=== PATIENT | female | born 1985 | race Caucasian/White ===

== ENCOUNTER → 2017-01-18 | Outpatient (REF) | payer OTHER ==
[2017-01-18 19:07] LABS: ALBUMIN 4.1 GM/DL (3.2-5.2); ALBUMIN/GLOBULIN RATIO 1.32 (1.00-1.93); ALKALINE PHOSPHATASE 60 U/L (45-117); ALT/SGPT 52 U/L (12-78); ANION GAP 7 MEQ/L (8-16); AST/SGOT 22 U/L (15-37); BILIRUBIN,TOTAL 1.1 MG/DL (0.2-1.0); BLOOD UREA NITROGEN 12 MG/DL (7-18); CALCIUM LEVEL 8.8 MG/DL (8.5-10.1); CARBON DIOXIDE LEVEL 30 MEQ/L (21-32); CHLORIDE LEVEL 104 MEQ/L (98-107); CREATININE FOR GFR 0.75 MG/DL (0.55-1.02); FREE T4 0.91 NG/DL (0.76-1.46); GLOMERULAR FILTRATION RATE > 60.0 (>60); GLUCOSE, FASTING 78 MG/DL (70-105); POTASSIUM SERUM 4.1 MEQ/L (3.5-5.1); SODIUM LEVEL 141 MEQ/L (136-145); TOTAL PROTEIN 7.2 GM/DL (6.4-8.2)
[2017-01-18 19:12] LABS: MEAN CORPUSCULAR HEMOGLOBIN 31.5 pg (27.0-33.0); MEAN CORPUSCULAR HGB CONC 33.7 g/dl (32.0-36.5); MEAN CORPUSCULAR VOLUME 93.6 fl (80.0-96.0); RED CELL DISTRIBUTION WIDTH 11.8 % (11.5-14.5); WHITE BLOOD COUNT 10.2 K/mm3 (4.0-10.0)
== END ==
LOC: M SFHCPLAZ 15:23
PROVIDERS: ATTEND Nurse Practitioner Family
DX: F41.1 Generalized anxiety disorder (principal); E55.9 Vitamin D deficiency, unspecified

== ENCOUNTER 2017-03-04 11:04 | Emergency (ER) | payer OTHER ==
[~2017-03-04] VITALS: Ht 167.6 cm; Wt 87.0 kg
[2017-03-04] MEDS ORDERED: ZOLO50TA PO (11:13)
[2017-03-04 11:41] LABS: CONTROL LINE UCG INT CTR LINE PRESENT
[2017-03-04 11:43] LABS: BASO % 1.1 % (0.0-1.0); EOS % 0.9 % (0.0-3.0); LARGE UNSTAINED CELL % 1.5 % (0.0-4.0); LYMPH % 38.5 % (24.0-44.0); MEAN CORPUSCULAR HEMOGLOBIN 31.5 pg (27.0-33.0); MEAN CORPUSCULAR HGB CONC 33.5 g/dl (32.0-36.5); MEAN CORPUSCULAR VOLUME 94.1 fl (80.0-96.0); MONO % 4.6 % (0.0-5.0); NEUTROPHILS % 53.4 % (36.0-66.0); PLATELET COUNT, AUTOMATED 243 k/mm3 (150-450); RED CELL DISTRIBUTION WIDTH 11.8 % (11.5-14.5); WHITE BLOOD COUNT 7.5 K/mm3 (4.0-10.0)
[2017-03-04 11:44] LABS: ADD MANUAL DIFFER NO; BASO # 0.1 K/mm3 (0.0-0.2); DIFF SLIDE NUMBER 97; EOS # 0.1 K/mm3 (0.0-0.50); LARGE UNSTAINED CELL # 0.1 K/mm3 (0.0-0.4); LYMPH # 2.9 K/mm3 (1.5-4.5); MONO # 0.3 K/mm3 (0.0-0.8)
[2017-03-04 11:48] LABS: ANION GAP 5 MEQ/L (8-16); BLOOD UREA NITROGEN 13 MG/DL (7-18); CALCIUM LEVEL 8.7 MG/DL (8.5-10.1); CARBON DIOXIDE LEVEL 31 MEQ/L (21-32); CHLORIDE LEVEL 106 MEQ/L (98-107); CREATININE FOR GFR 0.91 MG/DL (0.55-1.02); GLOMERULAR FILTRATION RATE > 60.0 (>60); GLUCOSE, FASTING 89 MG/DL (70-105); SODIUM LEVEL 142 MEQ/L (136-145)
[2017-03-04] MEDS ORDERED: MACR100C43 PO (12:21)
[2017-03-04 12:30] VITALS: BP 124/85
[2017-03-04] MEDS ORDERED: NITROFURANTOIN (MACROBID) 100 MG CAP PO ONE (12:30)
--- NOTE | 2017-03-04 19:37 | REP ---
CT ABDOMEN PELVIS WITHOUT CONTRAST: 03/04/2017. Comparison: CT 07/28/2011. Abdominal series 03/09/2010. Clinical history: Left midabdominal pain. Hematuria. Suspect stone. Findings: CT abdomen: Stone protocol. The lung bases are clear. Heart is not enlarged. There is no pericardial thickening or effusion. No hiatal hernia. Liver, spleen, contracted gallbladder, stomach, adrenal glands, pancreas and the small bowel loops in the upper abdomen were unremarkable. Colon shows stool and gas scattered without signs of colitis or diverticulitis. Small bowel loops are without dilatation or air-fluid levels. I see no ventral or umbilical bowel hernia. Some fat projects into the umbilicus and the omentum. The kidneys are fairly symmetric in size. There is no scarring or cortical atrophy. There is no mass, cyst, hydronephrosis, hydroureter or stone visible in the kidneys. The course of the ureters seen bilaterally without the definite stone present. Bone windows show the visualized ribs intact lumbar and lower thoracic levels and their posterior elements without acute finding. CT pelvis lumbosacral junction. SI joints, iliac bones, hips, pubic rami, symphysis pubis were all intact. There is small marginal osteophytes at the margins of the superior acetabulum on both sides. Hips without osteophyte formation. Uterus anteverted with an IUD in place. There is no adnexal mass. Ovaries are fairly symmetric and not enlarged. There is is anteverted and not enlarged. Pelvic free fluid. Distal left colon, sigmoid and rectum unremarkable. Small bowel loops in the pelvis were unremarkable. Appendix is retrocecal and also unremarkable. No inflammatory changes at the AC appendix or cecum. There are a few scattered tiny mesenteric nodes abdomen and pelvis. No ventral or inguinal hernia. Impression: 1. No renal, ureteral or bladder stone. No hydronephrosis or hydroureter. 2. IUD in place. Uterus anteverted with no adnexal mass. No abdominal or pelvic free fluid. 3. No adenopathy, abscess, free air or other significant finding. The solid organs were unremarkable and the gallbladder is contracted although without calcified stone. 4. Bones unremarkable. Nothing acute. Signed by Bunny Valdez MD 03/04/2017 07:29 P
== END 2017-03-04 12:34 | disposition home or self-care (01) ==
LOC: M ED 12:32
DX: N39.0 Urinary tract infection, site not specified (principal)

== ENCOUNTER → 2017-08-14 | Outpatient (REF) | payer OTHER ==
[~2017-08-14] MED LIST: MACR100C43 PO; ZOLO50TA PO
== END ==
LOC: M LABDRAW1 13:54
PROVIDERS: ATTEND Nurse Practitioner Family
DX: E55.9 Vitamin D deficiency, unspecified (principal)

== ENCOUNTER → 2017-08-23 | Outpatient (CLI) | payer OTHER ==
[2017-08-23 11:08] LABS: CONTROL LINE HCG INT CTR LINE PRESENT
== END ==
LOC: M LAB 09:36
PROVIDERS: ATTEND Nurse Practitioner Family
DX: N92.6 Irregular menstruation, unspecified (principal)

== ENCOUNTER → 2018-01-16 | Outpatient (REF) | payer OTHER ==
[2018-01-16 12:04] LABS: TOTAL 25(OH) VITAMIN D 24.2 NG/ML (30.0-100.0)
[2018-01-16 12:14] LABS: ALBUMIN 3.8 GM/DL (3.2-5.2); ALBUMIN/GLOBULIN RATIO 1.09 (1.00-1.93); ALKALINE PHOSPHATASE 55 U/L (45-117); ALT/SGPT 27 U/L (12-78); ANION GAP 5 MEQ/L (8-16); AST/SGOT 13 U/L (7-37); BILIRUBIN,TOTAL 0.8 MG/DL (0.2-1.0); BLOOD UREA NITROGEN 11 MG/DL (7-18); CALCIUM LEVEL 8.8 MG/DL (8.5-10.1); CARBON DIOXIDE LEVEL 28 MEQ/L (21-32); CHLORIDE LEVEL 109 MEQ/L (98-107); CHOLESTEROL LEVEL 184 MG/DL (<200); CHOLESTEROL RISK RATIO 2.746 (<5); CREATININE FOR GFR 0.71 MG/DL (0.55-1.30); FREE T4 0.93 NG/DL (0.76-1.46); GLOMERULAR FILTRATION RATE > 60.0 (>60); GLUCOSE, FASTING 80 MG/DL (70-100); HDL CHOLESTEROL 67 MG/DL (>40); NON-HDL-C 117 MG/DL; POTASSIUM SERUM 4.3 MEQ/L (3.5-5.1); SODIUM LEVEL 142 MEQ/L (136-145); THYROID STIMULATING HORMONE 0.912 uIU/ML (0.358-3.740); TOTAL PROTEIN 7.3 GM/DL (6.4-8.2); TRIGLYCERIDES LEVEL 70 MG/DL (<150)
[2018-01-16 13:13] LABS: ESTIMATED AVERAGE GLUCOSE 103 MG/DL (60-110); HEMOGLOBIN A1c 5.2 %
== END ==
LOC: M SFHCPLAZ 08:35
DX: E55.9 Vitamin D deficiency, unspecified (principal); F32.9 Major depressive disorder, single episode, unspecified; Z83.3 Family history of diabetes mellitus; E66.9 Obesity, unspecified

== ENCOUNTER → 2018-05-25 | Outpatient (REF) | payer OTHER | LOC: M LAB REF 08:29 | DX: N91.4 Secondary oligomenorrhea (principal) | CPT/HCPCS: 84144 ==

== ENCOUNTER → 2018-06-18 | Outpatient (REF) | payer OTHER ==
[2018-06-18 18:52] LABS: TOTAL 25(OH) VITAMIN D 31.8 NG/ML (30.0-100.0)
== END ==
LOC: M SFHCPLAZ 15:08
DX: E55.9 Vitamin D deficiency, unspecified (principal)

== ENCOUNTER → 2018-09-05 | Outpatient (CLI) | payer OTHER ==
--- NOTE | 2018-09-05 13:16 | REP ---
Clinical: History of ovarian cysts . Technique: Transabdominal pelvic ultrasound followed by transvaginal examination for better evaluation of the endometrium and adnexa. Findings: Bladder is unremarkable and measures 7.8 x 5.6 x 6.4 cm . Heterogeneous anteverted uterus measures 8.2 x 4.3 x 5.6 cm . The endometrial complex measures 7.1 mm thickness. No discrete uterine or endometrial abnormalities are appreciated. Bilateral ovaries are normal in appearance. Right ovary measures 2.9 x 1.6 x 2.2 cm ;left ovary measures 4.0 x 1.6 x 2.4 cm. Small amount of free fluid in the pelvis. . Impression: 1. No significant abnormalities appreciated. No ovarian cysts identified. Electronically Signed by Geronimo Moreno MD 09/05/2018 01:08 P
== END ==
LOC: M RAD 12:27
PROVIDERS: ATTEND Obstetrics & Gynecology
DX: N85.4 Malposition of uterus (principal)

== ENCOUNTER → 2018-09-19 | Outpatient (CLI) | payer OTHER ==
[~2018-09-19] MED LIST changes: +ISOVUE-370 76% 100ML VIAL (Q9967) As Ordered ONE
--- NOTE | 2018-09-19 13:28 | REP ---
Hysterosalpingogram: History: Infertility. Findings: Sequential fluoroscopically obtained spot radiographs taken during contrast injection into the endometrium performed by the referring retail furniture sales show prompt symmetrical filling and peritoneal spillage from the fallopian tubes bilaterally. The endometrial cavity is unremarkable. Fluoroscopy time is 0.2 minutes. Impression: Normal hysterosalpingogram. Bilateral fallopian tube patency is documented. Electronically Signed by Marques Chadwick MD 09/19/2018 04:25 P
== END ==
LOC: M RADPRO 12:05
PROVIDERS: ATTEND Obstetrics & Gynecology
DX: N97.9 Female infertility, unspecified (principal)
CPT/HCPCS: 58340; 74740; Q9967

== ENCOUNTER → 2018-09-24 | Outpatient (REF) | payer OTHER ==
[~2018-09-24] MED LIST changes: -ISOVUE-370 76% 100ML VIAL (Q9967) As Ordered ONE
[2018-09-24 12:54] LABS: BLOOD UREA NITROGEN 10 MG/DL (7-18); CALCIUM LEVEL 8.9 MG/DL (8.5-10.1); CARBON DIOXIDE LEVEL 27 MEQ/L (21-32); CHLORIDE LEVEL 104 MEQ/L (98-107); CREATININE FOR GFR 0.72 MG/DL (0.55-1.30); GLOMERULAR FILTRATION RATE > 60.0 (>60); GLUCOSE, FASTING 91 MG/DL (70-100); POTASSIUM SERUM 4.3 MEQ/L (3.5-5.1); SODIUM LEVEL 141 MEQ/L (136-145)
[2018-09-24 14:09] LABS: TOTAL 25(OH) VITAMIN D 28.3 NG/ML (30.0-100.0)
== END ==
LOC: M SFHCPLAZ 09:47
PROVIDERS: ATTEND Nurse Practitioner Family
DX: E55.9 Vitamin D deficiency, unspecified (principal); F32.9 Major depressive disorder, single episode, unspecified

== ENCOUNTER → 2018-12-13 | Outpatient (CLI) | payer OTHER ==
--- NOTE | 2018-12-13 09:00 | REP ---
Transvaginal pelvic sonography: History: Infertility study. Findings: Uterine dimensions are 8.0 x 3.5 x 4.8 cm. Endometrial stripe is 0.7 cm. No focal uterine mass is seen. myometrial scarring is noted. No free fluid. Overall dimensions of the right ovary are 2.8 x 1.8 x 2.0 cm. The right ovary contains a 1.1 x 0.8 cm follicle and 15 follicles ranging in size from 0.2-0.8 cm. The left ovary measures 3.5 x 2.0 x 1.9 cm. It contains no follicles over a centimeter. There are 36 follicles in the left ovary ranging in size from 0.2-0.9 cm. Impression: Ovarian follicle study as above. Electronically Signed by Marques Chadwick MD 12/13/2018 08:52 A
[2018-12-13 09:37] LABS: ESTRADIOL 36.8 PG/ML; LUTEINIZING HORMONE 14.2 mIU/mL; PROGESTERONE 1.83 NG/ML
== END ==
LOC: M RAD 06:03
PROVIDERS: ATTEND Obstetrics & Gynecology Reproductive Endocrinology
DX: E28.9 Ovarian dysfunction, unspecified (principal)

== ENCOUNTER → 2018-12-17 | Outpatient (CLI) | payer OTHER ==
--- NOTE | 2018-12-17 07:55 | REP ---
Transvaginal pelvic sonography: History: Infertility. Follicle study. Findings: Uterine dimensions are 8.5 x 4.0 x 4.8 cm. Endometrial stripe is 0.5 cm thick. There is a small sliver of cul-de-sac fluid. The right ovary measures 2.7 x 1.9 x 1.8 cm. There are no follicles over a centimeter in the right ovary. There are five follicles in the right ovary ranging in size from 0.4-0.7 cm. The left ovaries dimensions are 4.5 x 2.6 x 3.7 cm. There are four follicles over a centimeter in the left ovary measured as follows: 1.3 x 1.4, 1.7 x 1.5, 1.3 x 1.4, and 1.6 x 1.1 cm. In addition, the left ovary contains seven follicles ranging in size from 0.3-0.8 cm. Impression: Ovarian follicle study as above. Electronically Signed by Marques Chadwick MD 12/17/2018 07:46 A
[2018-12-17 09:16] LABS: ESTRADIOL 46.6 PG/ML; LUTEINIZING HORMONE 8.1 mIU/mL; PROGESTERONE 14.5 NG/ML
== END ==
LOC: M RAD 06:55
PROVIDERS: ATTEND Obstetrics & Gynecology Reproductive Endocrinology
DX: N97.9 Female infertility, unspecified (principal)

== ENCOUNTER → 2018-12-24 | Outpatient (CLI) | payer OTHER | LOC: M LAB 08:55 | PROVIDERS: ATTEND Obstetrics & Gynecology Reproductive Endocrinology | DX: E28.9 Ovarian dysfunction, unspecified (principal) ==

== ENCOUNTER → 2018-12-31 | Outpatient (CLI) | payer OTHER | LOC: M LAB 09:08 | PROVIDERS: ATTEND Obstetrics & Gynecology Reproductive Endocrinology | DX: Z32.00 Encounter for pregnancy test, result unknown (principal); E28.9 Ovarian dysfunction, unspecified ==

== ENCOUNTER → 2018-12-31 | Outpatient (CLI) | payer OTHER | LOC: M LAB 12:36 | PROVIDERS: ATTEND Obstetrics & Gynecology Reproductive Endocrinology | DX: Z32.00 Encounter for pregnancy test, result unknown (principal) ==

== ENCOUNTER → 2019-01-16 | Outpatient (CLI) | payer OTHER ==
[2019-01-16 10:02] LABS: THYROID STIMULATING HORMONE 1.29 uIU/ML (0.358-3.740)
[2019-01-16 10:06] LABS: ESTRADIOL 98.1 PG/ML; PROGESTERONE 18.68 NG/ML
== END ==
LOC: M LAB 09:13
PROVIDERS: ATTEND Obstetrics & Gynecology Reproductive Endocrinology
DX: E28.9 Ovarian dysfunction, unspecified (principal)

== ENCOUNTER → 2019-01-23 | Outpatient (CLI) | payer OTHER ==
[2019-01-23 10:34] LABS: HCG, SERUM QUANTITATIVE < 1.0 MIU/ML
[2019-01-23 10:36] LABS: PROGESTERONE 1.06 NG/ML
== END ==
LOC: M LAB 09:09
PROVIDERS: ATTEND Obstetrics & Gynecology Reproductive Endocrinology
DX: E28.9 Ovarian dysfunction, unspecified (principal)

== ENCOUNTER → 2019-02-12 | Outpatient (CLI) | payer OTHER ==
[2019-02-12 07:40] LABS: THYROID STIMULATING HORMONE 2.2 uIU/ML (0.358-3.740)
[2019-02-12 09:36] LABS: PROGESTERONE 24.5 NG/ML
== END ==
LOC: M LAB 06:36
PROVIDERS: ATTEND Obstetrics & Gynecology Reproductive Endocrinology
DX: E28.9 Ovarian dysfunction, unspecified (principal)

== ENCOUNTER → 2019-02-19 | Outpatient (CLI) | payer OTHER ==
[2019-02-19 09:51] LABS: HCG, SERUM QUANTITATIVE < 1.0 MIU/ML
[2019-02-19 11:17] LABS: PROGESTERONE 7.76 NG/ML
== END ==
LOC: M LAB 08:49
PROVIDERS: ATTEND Obstetrics & Gynecology Reproductive Endocrinology
DX: Z32.00 Encounter for pregnancy test, result unknown (principal); Z3A.00 Weeks of gestation of pregnancy not specified

== ENCOUNTER → 2019-03-10 | Outpatient (CLI) | payer OTHER ==
[2019-03-10 08:28] LABS: THYROID STIMULATING HORMONE 1.82 uIU/ML (0.358-3.740)
[2019-03-10 09:55] LABS: ESTRADIOL 68.7 PG/ML; PROGESTERONE 30.93 NG/ML
== END ==
LOC: M LAB 06:30
PROVIDERS: ATTEND Obstetrics & Gynecology Reproductive Endocrinology
DX: E28.9 Ovarian dysfunction, unspecified (principal)

== ENCOUNTER → 2019-03-17 | Outpatient (CLI) | payer OTHER ==
[2019-03-17 07:31] LABS: HCG, SERUM QUANTITATIVE < 1.0 MIU/ML
[2019-03-17 10:25] LABS: PROGESTERONE 7.69 NG/ML
== END ==
LOC: M LAB 06:34
PROVIDERS: ATTEND Obstetrics & Gynecology Reproductive Endocrinology
DX: E28.9 Ovarian dysfunction, unspecified (principal)

== ENCOUNTER → 2019-10-03 | Outpatient (CLI) | payer OTHER ==
[2019-10-03 14:16] LABS: HCG, SERUM QUALITATIVE NEGATIVE (NEGATIVE)
== END ==
LOC: M PLALAB 09:37
PROVIDERS: ATTEND Advanced Practice Midwife
DX: N92.6 Irregular menstruation, unspecified (principal)

== ENCOUNTER → 2020-08-09 | Outpatient (CLI) | payer OTHER ==
[2020-08-09 14:59] LABS: HCG, SERUM QUALITATIVE NEGATIVE (NEGATIVE)
== END ==
LOC: M LAB 13:20
PROVIDERS: ATTEND Advanced Practice Midwife
DX: N92.6 Irregular menstruation, unspecified (principal)

== ENCOUNTER → 2020-08-09 | Outpatient (CLI) | payer OTHER ==
[2020-08-09 15:01] LABS: ESTRADIOL 154.1 PG/ML; FOLLICLE STIMULATING HORMONE 2.7 mIU/mL; LUTEINIZING HORMONE 1.9 mIU/mL; PROGESTERONE 0.21 NG/ML
[2020-08-10 17:09] LABS: TESTOSTERONE FREE (DIRECT) 3.4 pg/mL (0.0-4.2)
== END ==
LOC: M LAB 13:24
PROVIDERS: ATTEND Obstetrics & Gynecology
DX: N95.1 Menopausal and female climacteric states (principal); H34.9 Unspecified retinal vascular occlusion; F52.0 Hypoactive sexual desire disorder

== ENCOUNTER → 2020-10-18 | Outpatient (REF) | payer OTHER | LOC: M PLALAB 15:27 | PROVIDERS: ATTEND Advanced Practice Midwife | DX: E66.01 Morbid (severe) obesity due to excess calories (principal); F41.8 Other specified anxiety disorders ==

== ENCOUNTER → 2020-11-12 | Outpatient (REF) | payer OTHER ==
[2020-11-12 13:31] LABS: FREE T4 0.8 NG/DL (0.76-1.46); THYROID STIMULATING HORMONE 1.21 uIU/ML (0.358-3.740)
[2020-11-12 13:34] LABS: ALBUMIN 3.7 GM/DL (3.2-5.2); ALT/SGPT 23 U/L (12-78); BILIRUBIN,TOTAL 0.5 MG/DL (0.2-1.0); BLOOD UREA NITROGEN 10 MG/DL (7-18); CALCIUM LEVEL 9.2 MG/DL (8.5-10.1); CARBON DIOXIDE LEVEL 29 MEQ/L (21-32); CHLORIDE LEVEL 106 MEQ/L (98-107); CHOLESTEROL LEVEL 198 MG/DL (<200); CHOLESTEROL RISK RATIO 3.735 (<5); CREATININE FOR GFR 0.77 MG/DL (0.55-1.30); GLOMERULAR FILTRATION RATE > 60.0 (>60); GLUCOSE, FASTING 90 MG/DL (70-100); HDL CHOLESTEROL 53 MG/DL (>40); LDL CHOLESTEROL 120 MG/DL (<100); NON-HDL-C 145 MG/DL; POTASSIUM SERUM 4.2 MEQ/L (3.5-5.1); SODIUM LEVEL 140 MEQ/L (136-145); TOTAL PROTEIN 7.3 GM/DL (6.4-8.2); TRIGLYCERIDES LEVEL 125 MG/DL (<150)
[2020-11-12 13:39] LABS: TOTAL 25(OH) VITAMIN D 22.6 NG/ML (30.0-100.0)
== END ==
LOC: M SFHCPLAZ 11:22
PROVIDERS: ATTEND Nurse Practitioner Family
DX: Z13.220 Encounter for screening for lipoid disorders (principal); E55.9 Vitamin D deficiency, unspecified; E66.01 Morbid (severe) obesity due to excess calories; F41.8 Other specified anxiety disorders

== ENCOUNTER → 2020-11-29 | Outpatient (REF) | LOC: M LABSMTC 11:19 | PROVIDERS: ATTEND Pediatrics | DX: Z11.52 Encounter for screening for COVID-19 (principal) ==

== ENCOUNTER → 2020-12-02 | Outpatient (REF) | LOC: M LABSMTC 11:55 | PROVIDERS: ATTEND Pediatrics | DX: Z11.52 Encounter for screening for COVID-19 (principal) ==

== ENCOUNTER → 2020-12-04 | Outpatient (REF) | payer OTHER ==
[2020-12-04 09:07] LABS: URINE PREG TEST NEGATIVE (NEGATIVE)
== END ==
LOC: M SFHCWAGY 08:55 → M LAB REF 08:55
PROVIDERS: ATTEND Specialist
DX: Z30.40 Encounter for surveillance of contraceptives, unspecified (principal)

== ENCOUNTER → 2021-01-13 | Outpatient (CLI) | payer SELFPAY | LOC: M LABSMTC 12:38 | PROVIDERS: ATTEND Pediatrics | DX: Z20.822 Contact with and (suspected) exposure to COVID-19 (principal) ==

== ENCOUNTER → 2021-01-13 | Outpatient (CLI) | payer OTHER | LOC: M LABSMTC 14:12 | PROVIDERS: ATTEND Surgery | DX: Z20.828 Contact with and (suspected) exposure to other viral communicable diseases (principal) ==

== ENCOUNTER → 2021-01-16 | Outpatient (CLI) | payer OTHER ==
[2021-01-16 16:32] LABS: HCG, SERUM QUALITATIVE NEGATIVE (NEGATIVE)
== END ==
LOC: M LAB 15:38
PROVIDERS: ATTEND Surgery
DX: Z01.812 Encounter for preprocedural laboratory examination (principal)

== ENCOUNTER → 2021-06-07 | Outpatient (CLI) | payer OTHER ==
[2021-06-07 13:26] LABS: BASO % 0.5 % (0.0-1.0); EOS # 0.1 10^3/uL (0.0-0.5); EOS % 2.3 % (0.0-3.0); HEMATOCRIT 46.8 % (36.0-47.0); HEMOGLOBIN 15.7 g/dl (12.0-15.5); LYMPH # 1.6 10^3/uL (1.5-5.0); LYMPH % 37.2 % (24.0-44.0); MEAN CORPUSCULAR HEMOGLOBIN 30.2 pg (27.0-33.0); MEAN CORPUSCULAR HGB CONC 33.5 g/dl (32.0-36.5); MONO # 0.6 10^3/uL (0.0-0.8); MONO % 12.6 % (2.0-8.0); NEUTROPHILS # 2.1 10^3/uL (1.5-8.5); NEUTROPHILS % 47.2 % (36.0-66.0); PLATELET COUNT, AUTOMATED 207 10^3/uL (150-450); WHITE BLOOD COUNT 4.4 10^3/uL (4.0-10.0)
[2021-06-07 13:34] LABS: HEMATOCRIT 46.8 % (36.0-47.0)
[2021-06-07 13:51] LABS: HEMOGLOBIN A1c 5.2 %
[2021-06-07 13:58] LABS: ALBUMIN 3.3 GM/DL (3.2-5.2); ALT/SGPT 85 U/L (12-78); BILIRUBIN,TOTAL 0.6 MG/DL (0.2-1.0); BLOOD UREA NITROGEN 5 MG/DL (7-18); CALCIUM LEVEL 8.8 MG/DL (8.5-10.1); CARBON DIOXIDE LEVEL 25 MEQ/L (21-32); CHLORIDE LEVEL 109 MEQ/L (98-107); FERRITIN 92 NG/ML (8-252); GLOMERULAR FILTRATION RATE > 60.0 (>60); GLUCOSE, FASTING 86 MG/DL (70-100); IRON (FE) 40 UG/DL (50-170); PERCENT SATURATION 15.8 % (13.2-45.0); PHOSPHORUS LEVEL 2.9 MG/DL (2.5-4.9); POTASSIUM SERUM 3.8 MEQ/L (3.5-5.1); SODIUM LEVEL 143 MEQ/L (136-145); TOTAL IRON BINDING CAPACITY 253 UG/DL (250-450); TOTAL PROTEIN 6.5 GM/DL (6.4-8.2)
[2021-06-07 14:04] LABS: TOTAL 25(OH) VITAMIN D 29.6 NG/ML (30.0-100.0)
[2021-06-07 14:05] LABS: VITAMIN B12 LEVEL 1090 PG/ML (247-911)
== END ==
LOC: M PLALAB 11:30
PROVIDERS: ATTEND Surgery
DX: K91.2 Postsurgical malabsorption, not elsewhere classified (principal); Z98.84 Bariatric surgery status; E55.9 Vitamin D deficiency, unspecified

== ENCOUNTER → 2021-07-28 | Outpatient (REF) | payer BC | LOC: M SFHCWAGY 11:33 | PROVIDERS: ATTEND Advanced Practice Midwife | DX: Z12.4 Encounter for screening for malignant neoplasm of cervix (principal) | CPT/HCPCS: 87624; G0123 ==

== ENCOUNTER → 2021-11-04 | Outpatient (CLI) | payer BC ==
[~2021-11-04] MED LIST changes: +EFFE75CA2 PO
[2021-11-04 10:53] LABS: BASO % 0.3 % (0.0-1.0); HEMATOCRIT 45.7 % (36.0-47.0); HEMOGLOBIN 15.1 g/dl (12.0-15.5); LYMPH # 2.6 10^3/uL (1.5-5.0); LYMPH % 36.1 % (24.0-44.0); MEAN CORPUSCULAR VOLUME 90.7 fl (80.0-96.0); MONO # 0.5 10^3/uL (0.0-0.8); MONO % 6.9 % (2.0-8.0); NEUTROPHILS % 56.6 % (36.0-66.0); PLATELET COUNT, AUTOMATED 245 10^3/uL (150-450); RED BLOOD COUNT 5.04 10^6/uL (4.00-5.40); WHITE BLOOD COUNT 7.1 10^3/uL (4.0-10.0)
[2021-11-04 11:54] LABS: ALBUMIN 3.7 GM/DL (3.2-5.2); ALT/SGPT 40 U/L (12-78); BILIRUBIN,TOTAL 0.6 MG/DL (0.2-1.0); BLOOD UREA NITROGEN 10 MG/DL (7-18); CALCIUM LEVEL 9.1 MG/DL (8.5-10.1); CARBON DIOXIDE LEVEL 27 MEQ/L (21-32); CHLORIDE LEVEL 109 MEQ/L (98-107); CREATININE FOR GFR 0.73 MG/DL (0.55-1.30); FERRITIN 52 NG/ML (8-252); GLOMERULAR FILTRATION RATE > 60.0 (>60); GLUCOSE, FASTING 76 MG/DL (70-100); IRON (FE) 88 UG/DL (50-170); MAGNESIUM LEVEL 2.2 MG/DL (1.8-2.4); PHOSPHORUS LEVEL 2.9 MG/DL (2.5-4.9); POTASSIUM SERUM 3.9 MEQ/L (3.5-5.1); SODIUM LEVEL 141 MEQ/L (136-145); TOTAL IRON BINDING CAPACITY 293 UG/DL (250-450); TOTAL PROTEIN 6.7 GM/DL (6.4-8.2)
[2021-11-04 12:19] LABS: HEMOGLOBIN A1c 5.3 %
[2021-11-04 12:41] LABS: TOTAL 25(OH) VITAMIN D 24.3 NG/ML (30.0-100.0); VITAMIN B12 LEVEL 1019 PG/ML (247-911)
== END ==
LOC: M LAB 10:22
PROVIDERS: ATTEND Surgery
DX: K91.2 Postsurgical malabsorption, not elsewhere classified (principal); E55.9 Vitamin D deficiency, unspecified; Z86.39 Personal history of other endocrine, nutritional and metabolic disease; Z98.84 Bariatric surgery status

== ENCOUNTER 2021-11-07 20:38 | Emergency (ER) | payer BC ==
[~2021-11-07] VITALS: Ht 165.1 cm; Wt 84.7 kg
[~2021-11-07 20:38] MED LIST changes: -EFFE75CA2 PO
[2021-11-07] MEDS ORDERED: EFFE75CA2 PO (20:42)
[2021-11-07 21:57] LABS: BASO % 0.1 % (0.0-1.0); HEMATOCRIT 44.4 % (36.0-47.0); LYMPH # 2.6 10^3/uL (1.5-5.0); LYMPH % 17.7 % (24.0-44.0); MEAN CORPUSCULAR HEMOGLOBIN 30.3 pg (27.0-33.0); MEAN CORPUSCULAR HGB CONC 33.8 g/dl (32.0-36.5); MEAN CORPUSCULAR VOLUME 89.7 fl (80.0-96.0); MONO # 0.8 10^3/uL (0.0-0.8); MONO % 5.2 % (2.0-8.0); NEUTROPHILS # 11.4 10^3/uL (1.5-8.5); NEUTROPHILS % 76.7 % (36.0-66.0); PLATELET COUNT, AUTOMATED 237 10^3/uL (150-450); RED BLOOD COUNT 4.95 10^6/uL (4.00-5.40); WHITE BLOOD COUNT 14.9 10^3/uL (4.0-10.0)
[2021-11-07 22:22] LABS: ALBUMIN 3.6 GM/DL (3.2-5.2); ALT/SGPT 68 U/L (12-78); BILIRUBIN,DIRECT 0.2 MG/DL (0.0-0.2); BILIRUBIN,TOTAL 0.6 MG/DL (0.2-1.0); BLOOD UREA NITROGEN 13 MG/DL (7-18); CALCIUM LEVEL 8.5 MG/DL (8.5-10.1); CARBON DIOXIDE LEVEL 23 MEQ/L (21-32); CHLORIDE LEVEL 113 MEQ/L (98-107); CREATININE FOR GFR 0.69 MG/DL (0.55-1.30); GLOMERULAR FILTRATION RATE > 60.0 (>60); GLUCOSE, FASTING 91 MG/DL (70-100); POTASSIUM SERUM 3.5 MEQ/L (3.5-5.1); SODIUM LEVEL 142 MEQ/L (136-145); TOTAL PROTEIN 6.6 GM/DL (6.4-8.2)
[2021-11-07 22:54] LABS: HCG, SERUM QUALITATIVE NEGATIVE (NEGATIVE)
[2021-11-07] MEDS ORDERED: ISOVUE-370 76% 100ML VIAL As Ordered ONE (23:16)
[2021-11-08 00:31] VITALS: BP 119/82
== END 2021-11-08 01:00 | disposition home or self-care (01) ==
LOC: M ED 20:38
DX: R10.13 Epigastric pain (principal); F33.9 Major depressive disorder, recurrent, unspecified; Z87.891 Personal history of nicotine dependence; Z98.84 Bariatric surgery status; Z79.899 Other long term (current) drug therapy
CPT/HCPCS: 36415; 74177; 80048; 80076; 82550; 83605; 84484; 84703; 85025; 93005; 99285; Q9967

== ENCOUNTER → 2021-11-16 | Outpatient (CLI) | payer BC ==
[~2021-11-16] MED LIST changes: +EFFE75CA2 PO
[2021-11-16 08:32] LABS: BASO % 0.3 % (0.0-1.0); EOS # 0.2 10^3/uL (0.0-0.5); EOS % 2.5 % (0.0-3.0); HEMATOCRIT 46.2 % (36.0-47.0); HEMOGLOBIN 15.4 g/dl (12.0-15.5); LYMPH # 2.3 10^3/uL (1.5-5.0); LYMPH % 37.6 % (24.0-44.0); MEAN CORPUSCULAR HEMOGLOBIN 30.3 pg (27.0-33.0); MEAN CORPUSCULAR HGB CONC 33.3 g/dl (32.0-36.5); MEAN CORPUSCULAR VOLUME 90.9 fl (80.0-96.0); MONO # 0.4 10^3/uL (0.0-0.8); MONO % 6.2 % (2.0-8.0); NEUTROPHILS # 3.2 10^3/uL (1.5-8.5); NEUTROPHILS % 53.1 % (36.0-66.0); PLATELET COUNT, AUTOMATED 251 10^3/uL (150-450); RED BLOOD COUNT 5.08 10^6/uL (4.00-5.40); WHITE BLOOD COUNT 6.1 10^3/uL (4.0-10.0)
[2021-11-16 09:04] LABS: ALBUMIN 3.8 GM/DL (3.2-5.2); ALT/SGPT 35 U/L (12-78); BLOOD UREA NITROGEN 11 MG/DL (7-18); CALCIUM LEVEL 9.1 MG/DL (8.5-10.1); CARBON DIOXIDE LEVEL 25 MEQ/L (21-32); CHLORIDE LEVEL 113 MEQ/L (98-107); GLOMERULAR FILTRATION RATE > 60.0 (>60); GLUCOSE, FASTING 85 MG/DL (70-100); POTASSIUM SERUM 4.2 MEQ/L (3.5-5.1); SODIUM LEVEL 142 MEQ/L (136-145)
== END ==
LOC: M LAB 07:43
PROVIDERS: ATTEND Physician Assistant Surgical
DX: Z98.84 Bariatric surgery status (principal)

== ENCOUNTER → 2021-11-28 | Outpatient (CLI) | payer BC | LOC: M RAD 08:13 | PROVIDERS: ATTEND Physician Assistant Surgical | DX: K80.20 Calculus of gallbladder without cholecystitis without obstruction (principal); R10.11 Right upper quadrant pain; Z98.84 Bariatric surgery status ==

== ENCOUNTER → 2022-01-12 | Outpatient (CLI) | payer BC | LOC: M LABSMTC 10:14 | PROVIDERS: ATTEND Surgery | DX: Z01.812 Encounter for preprocedural laboratory examination (principal); Z11.52 Encounter for screening for COVID-19 ==

== ENCOUNTER → 2022-03-02 | Outpatient (REF) | LOC: M LABSMTC 10:20 | PROVIDERS: ATTEND Family Medicine | DX: Z20.822 Contact with and (suspected) exposure to COVID-19 (principal); Z11.52 Encounter for screening for COVID-19 ==

== ENCOUNTER → 2022-03-16 | Outpatient (CLI) | payer BC ==
[2022-03-16 11:11] LABS: HEMATOCRIT 44.9 % (36.0-47.0); HEMOGLOBIN 14.8 g/dl (12.0-15.5); MEAN CORPUSCULAR HEMOGLOBIN 30.7 pg (27.0-33.0); MEAN CORPUSCULAR VOLUME 93.2 fl (80.0-96.0); PLATELET COUNT, AUTOMATED 227 10^3/uL (150-450); RED BLOOD COUNT 4.82 10^6/uL (4.00-5.40); WHITE BLOOD COUNT 7.1 10^3/uL (4.0-10.0)
[2022-03-16 11:42] LABS: ALBUMIN 3.9 GM/DL (3.2-5.2); ALT/SGPT 35 U/L (12-78); BILIRUBIN,TOTAL 0.9 MG/DL (0.2-1.0); BLOOD UREA NITROGEN 10 MG/DL (7-18); CALCIUM LEVEL 9.2 MG/DL (8.5-10.1); CARBON DIOXIDE LEVEL 30 MEQ/L (21-32); CHLORIDE LEVEL 108 MEQ/L (98-107); CHOLESTEROL LEVEL 139 MG/DL (<200); CHOLESTEROL RISK RATIO 2.355 (<5); GLOMERULAR FILTRATION RATE > 60.0 (>60); GLUCOSE, FASTING 75 MG/DL (70-100); HDL CHOLESTEROL 59 MG/DL (>40); LDL CHOLESTEROL 66 MG/DL (<100); NON-HDL-C 80 MG/DL; POTASSIUM SERUM 4.1 MEQ/L (3.5-5.1); SODIUM LEVEL 140 MEQ/L (136-145); TOTAL PROTEIN 6.9 GM/DL (6.4-8.2); TRIGLYCERIDES LEVEL 68 MG/DL (<150)
[2022-03-16 11:44] LABS: HEMOGLOBIN A1c 4.9 %
[2022-03-16 11:52] LABS: FOLLICLE STIMULATING HORMONE 10.4 mIU/mL; LUTEINIZING HORMONE 4.1 mIU/mL
== END ==
LOC: M LAB 10:35
PROVIDERS: ATTEND Advanced Practice Midwife
DX: Z01.419 Encounter for gynecological examination (general) (routine) without abnormal findings (principal)

== ENCOUNTER → 2022-05-10 | Outpatient (CLI) | payer BC | LOC: M WHC 08:34 | PROVIDERS: ATTEND Advanced Practice Midwife | DX: N63.12 Unspecified lump in the right breast, upper inner quadrant (principal) | CPT/HCPCS: 76642; 77066; G0279 ==

== ENCOUNTER → 2022-07-19 | Outpatient (CLI) | payer BC ==
[2022-07-19 17:19] LABS: HEMATOCRIT 43.2 % (36.0-47.0); MEAN CORPUSCULAR HGB CONC 32.4 g/dl (32.0-36.5); MEAN CORPUSCULAR VOLUME 95.8 fl (80.0-96.0); PLATELET COUNT, AUTOMATED 232 10^3/uL (150-450); RED BLOOD COUNT 4.51 10^6/uL (4.00-5.40); WHITE BLOOD COUNT 7.3 10^3/uL (4.0-10.0)
== END ==
LOC: M LAB 16:22
PROVIDERS: ATTEND Obstetrics & Gynecology
DX: N93.9 Abnormal uterine and vaginal bleeding, unspecified (principal)

== ENCOUNTER → 2022-07-27 | Outpatient (CLI) | payer BC | LOC: M WHC 13:27 | PROVIDERS: ATTEND Obstetrics & Gynecology | DX: N93.9 Abnormal uterine and vaginal bleeding, unspecified (principal) ==

== ENCOUNTER → 2022-09-13 | Outpatient (REF) ==
[2022-09-13 15:25] LABS: RSV AMPLIFICATION NEGATIVE (NEGATIVE)
== END ==
LOC: M EMP 13:53
PROVIDERS: ATTEND Family Medicine
DX: Z20.818 Contact with and (suspected) exposure to other bacterial communicable diseases (principal)

== ENCOUNTER → 2022-12-10 | Outpatient (CLI) | payer BC | LOC: M LAB 08:46 | PROVIDERS: ATTEND Obstetrics & Gynecology | DX: N97.0 Female infertility associated with anovulation (principal) ==

== ENCOUNTER → 2023-01-02 | Outpatient (CLI) | payer BC | LOC: M WHC 12:49 | PROVIDERS: ATTEND Surgery | DX: R92.8 Other abnormal and inconclusive findings on diagnostic imaging of breast (principal) | CPT/HCPCS: 77065; G0279 ==

== ENCOUNTER → 2023-01-10 | Outpatient (CLI) | payer BC | LOC: M LAB 12:05 | PROVIDERS: ATTEND Obstetrics & Gynecology | DX: N97.0 Female infertility associated with anovulation (principal) ==

== ENCOUNTER → 2023-01-24 | Outpatient (CLI) | payer BC ==
[~2023-01-24] MED LIST changes: +ISOVUE-370 76% 100ML VIAL As Ordered ONE
== END ==
LOC: M RADPRO 12:09
PROVIDERS: ATTEND Obstetrics & Gynecology
DX: N97.0 Female infertility associated with anovulation (principal)
CPT/HCPCS: 58340; 74740; Q9967

== ENCOUNTER → 2023-03-08 | Outpatient (CLI) | payer BC ==
[~2023-03-08] MED LIST changes: -ISOVUE-370 76% 100ML VIAL As Ordered ONE
[2023-03-08 11:03] LABS: HEMATOCRIT 41.6 % (36.0-47.0); HEMOGLOBIN 13.3 g/dl (12.0-15.5); MEAN CORPUSCULAR HEMOGLOBIN 30.9 pg (27.0-33.0); MEAN CORPUSCULAR VOLUME 96.7 fl (80.0-96.0); PLATELET COUNT, AUTOMATED 283 10^3/uL (150-450); WHITE BLOOD COUNT 5.8 10^3/uL (4.0-10.0)
[2023-03-08 11:24] LABS: ALBUMIN 3.5 G/DL (3.2-5.2); ALKALINE PHOSPHATASE 62 U/L (46-116); ALT/SGPT 30 U/L (7.0-40); AST/SGOT 15 U/L (<34); BILIRUBIN,TOTAL 1.2 MG/DL (0.3-1.2); BLOOD UREA NITROGEN 10 MG/DL (9-23); CALCIUM LEVEL 9.3 MG/DL (8.5-10.1); CARBON DIOXIDE LEVEL 32 MMOL/L (20-31); CHLORIDE LEVEL 109 MMOL/L (98-107); CREATININE FOR GFR 0.66 MG/DL (0.55-1.30); GLOMERULAR FILTRATION RATE > 60.0 (>60); GLUCOSE, FASTING 68 MG/DL (60-100); HCG, SERUM QUANTITATIVE < 2.6 MIU/ML (<4.2); POTASSIUM SERUM 4.7 MMOL/L (3.5-5.1); SODIUM LEVEL 142 MMOL/L (136-145); TOTAL PROTEIN 6.3 G/DL (5.7-8.2)
[2023-03-08 11:28] LABS: FOLLICLE STIMULATING HORMONE 6.4 mIU/ML; PROLACTIN 6.35 NG/ML; THYROID STIMULATING HORMONE 0.694 uIU/ML (0.55-4.78)
[2023-03-08 11:29] LABS: ESTRADIOL 159.3 PG/ML; LUTEINIZING HORMONE 6.3 mIU/ML; THYROID PEROXIDASE ANTIBODY < 28.0 U/ML (<60.0); TOTAL 25(OH) VITAMIN D 22.8 NG/ML (20.0-100.0)
[2023-03-08 11:30] LABS: TESTOSTERONE 14 NG/DL (14-76)
[2023-03-08 16:02] LABS: HEPATITIS B SURFACE ANTIGEN NEGATIVE (NEGATIVE)
[2023-03-08 16:14] LABS: HIV 1&2 SCREEN NEGATIVE (NEGATIVE)
[2023-03-08 16:23] LABS: HEPATITIS C VIRUS ABY INDEX 0.08 INDEX (<0.8)
[2023-03-12 16:12] LABS: ANTI MULLERIAN HORMONE 1.73 ng/mL (.)
== END ==
LOC: M LAB 10:19
PROVIDERS: ATTEND Obstetrics & Gynecology Reproductive Endocrinology
DX: Z31.41 Encounter for fertility testing (principal)

== ENCOUNTER → 2023-04-19 | Outpatient (CLI) | payer BC ==
[2023-04-19 09:43] LABS: ESTRADIOL 1984.5 PG/ML
[2023-04-19 09:45] LABS: PROGESTERONE 40.57 NG/ML
== END ==
LOC: M LAB 08:32
PROVIDERS: ATTEND Obstetrics & Gynecology Reproductive Endocrinology
DX: Z31.49 Encounter for other procreative investigation and testing (principal)

== ENCOUNTER → 2023-04-25 | Outpatient (CLI) | payer BC ==
[2023-04-25 09:10] LABS: HCG, SERUM QUANTITATIVE 267.1 MIU/ML (<4.2)
[2023-04-25 09:36] LABS: PROGESTERONE 145.93 NG/ML
== END ==
LOC: M LAB 07:49
PROVIDERS: ATTEND Obstetrics & Gynecology Reproductive Endocrinology
DX: Z32.00 Encounter for pregnancy test, result unknown (principal)

== ENCOUNTER → 2023-04-27 | Outpatient (CLI) | payer BC ==
[2023-04-27 09:10] LABS: HCG, SERUM QUANTITATIVE 923.7 MIU/ML (<4.2)
[2023-04-27 09:14] LABS: THYROID STIMULATING HORMONE 1.293 uIU/ML (0.55-4.78)
[2023-04-27 09:15] LABS: ESTRADIOL 2832.7 PG/ML
[2023-04-27 09:47] LABS: PROGESTERONE 122.46 NG/ML
== END ==
LOC: M LAB 08:18
PROVIDERS: ATTEND Obstetrics & Gynecology Reproductive Endocrinology
DX: Z32.01 Encounter for pregnancy test, result positive (principal)

== ENCOUNTER → 2023-05-03 | Outpatient (CLI) | payer BC ==
[2023-05-03 11:16] LABS: ESTRADIOL 2563.3 PG/ML
[2023-05-03 11:34] LABS: HCG, SERUM QUANTITATIVE 10070.1 MIU/ML (<4.2); PROGESTERONE 96.4 NG/ML
== END ==
LOC: M LAB 10:22
PROVIDERS: ATTEND Obstetrics & Gynecology Reproductive Endocrinology
DX: Z32.01 Encounter for pregnancy test, result positive (principal)

== ENCOUNTER → 2023-05-04 | Outpatient (CLI) | payer BC | LOC: M WHC 07:27 | PROVIDERS: ATTEND Obstetrics & Gynecology Reproductive Endocrinology | DX: N97.9 Female infertility, unspecified (principal) ==

== ENCOUNTER → 2023-05-10 | Outpatient (CLI) | payer BC ==
[2023-05-10 15:23] LABS: ESTRADIOL 2340.1 PG/ML
[2023-05-10 15:49] LABS: PROGESTERONE 131.6 NG/ML
== END ==
LOC: M LAB 14:25
PROVIDERS: ATTEND Obstetrics & Gynecology Reproductive Endocrinology
DX: Z32.01 Encounter for pregnancy test, result positive (principal)

== ENCOUNTER → 2023-05-11 | Outpatient (CLI) | payer BC | LOC: M WHC 07:22 | PROVIDERS: ATTEND Obstetrics & Gynecology Reproductive Endocrinology | DX: Z32.01 Encounter for pregnancy test, result positive (principal); Z3A.01 Less than 8 weeks gestation of pregnancy; O41.8X11 Other specified disorders of amniotic fluid and membranes, first trimester, fetus 1; O34.81 Maternal care for other abnormalities of pelvic organs, first trimester ==

== ENCOUNTER → 2023-05-24 | Outpatient (CLI) | payer BC ==
[2023-05-24 11:01] LABS: PROGESTERONE 58.65 NG/ML
== END ==
LOC: M LAB 10:08
PROVIDERS: ATTEND Obstetrics & Gynecology Reproductive Endocrinology
DX: O09.00 Supervision of pregnancy with history of infertility, unspecified trimester (principal)

== ENCOUNTER → 2023-05-25 | Outpatient (CLI) | payer BC | LOC: M RAD 11:55 | PROVIDERS: ATTEND Obstetrics & Gynecology Reproductive Endocrinology | DX: O09.00 Supervision of pregnancy with history of infertility, unspecified trimester (principal) ==

== ENCOUNTER → 2023-05-31 | Outpatient (CLI) | payer BC ==
[2023-05-31 12:32] LABS: ESTRADIOL 1885.9 PG/ML; PROGESTERONE 57.06 NG/ML
== END ==
LOC: M LAB 11:43
PROVIDERS: ATTEND Obstetrics & Gynecology Reproductive Endocrinology
DX: O09.00 Supervision of pregnancy with history of infertility, unspecified trimester (principal); Z3A.00 Weeks of gestation of pregnancy not specified

== ENCOUNTER → 2023-06-01 | Outpatient (CLI) | payer BC | LOC: M RAD 07:38 | PROVIDERS: ATTEND Obstetrics & Gynecology Reproductive Endocrinology | DX: O09.01 Supervision of pregnancy with history of infertility, first trimester (principal); Z3A.09 9 weeks gestation of pregnancy ==

== ENCOUNTER → 2023-06-22 | Outpatient (CLI) | payer BC ==
[2023-06-22 16:38] LABS: HEMATOCRIT 38.2 % (36.0-47.0); HEMOGLOBIN 12.5 g/dl (12.0-15.5); MEAN CORPUSCULAR HEMOGLOBIN 29.8 pg (27.0-33.0); MEAN CORPUSCULAR HGB CONC 32.7 g/dl (32.0-36.5); PLATELET COUNT, AUTOMATED 302 10^3/uL (150-450); WHITE BLOOD COUNT 10.9 10^3/uL (4.0-10.0)
[2023-06-22 17:13] LABS: HEMOGLOBIN A1c 4.7 % (4.0-6.0)
[2023-06-22 17:36] LABS: HIV 1&2 SCREEN NEGATIVE (NEGATIVE)
[2023-06-22 17:45] LABS: HEPATITIS C VIRUS ABY INDEX 0.04 INDEX (<0.8)
[2023-06-22 21:48] LABS: GC DNA AMPLIFICATION NEGATIVE (NEGATIVE)
== END ==
LOC: M LAB 15:20
PROVIDERS: ATTEND Obstetrics & Gynecology
DX: O09.529 Supervision of elderly multigravida, unspecified trimester (principal)

== ENCOUNTER → 2023-08-13 | Outpatient (CLI) | payer BC | LOC: M WHC 08:41 | PROVIDERS: ATTEND Obstetrics & Gynecology | DX: O34.211 Maternal care for low transverse scar from previous cesarean delivery (principal); O32.1XX0 Maternal care for breech presentation, not applicable or unspecified; Z3A.21 21 weeks gestation of pregnancy; O44.02 Complete placenta previa NOS or without hemorrhage, second trimester ==

== ENCOUNTER → 2023-09-13 | Outpatient (CLI) | payer BC | LOC: M WHC 11:37 | PROVIDERS: ATTEND Obstetrics & Gynecology | DX: O44.02 Complete placenta previa NOS or without hemorrhage, second trimester (principal); O32.1XX0 Maternal care for breech presentation, not applicable or unspecified; Z3A.25 25 weeks gestation of pregnancy ==

== ENCOUNTER → 2023-10-08 | Outpatient (CLI) | payer BC | LOC: M PLAIMG 06:58 | PROVIDERS: ATTEND Obstetrics & Gynecology | DX: O44.00 Complete placenta previa NOS or without hemorrhage, unspecified trimester (principal); Z3A.00 Weeks of gestation of pregnancy not specified ==

== ENCOUNTER → 2023-10-11 | Outpatient (CLI) | payer BC | LOC: M WHC 12:17 | PROVIDERS: ATTEND Obstetrics & Gynecology | DX: O99.840 Bariatric surgery status complicating pregnancy, unspecified trimester (principal) ==

== ENCOUNTER → 2023-10-15 | Outpatient (CLI) | payer BC ==
[2023-10-15 08:58] LABS: HEMATOCRIT 29.9 % (36.0-47.0); HEMOGLOBIN 9.3 g/dl (12.0-15.5); MEAN CORPUSCULAR HGB CONC 31.1 g/dl (32.0-36.5); MEAN CORPUSCULAR VOLUME 86.7 fl (80.0-96.0); PLATELET COUNT, AUTOMATED 264 10^3/uL (150-450); RED BLOOD COUNT 3.45 10^6/uL (4.00-5.40); WHITE BLOOD COUNT 8.5 10^3/uL (4.0-10.0)
[2023-10-15 09:23] LABS: FOLATE 13.22 NG/ML (>5.4); TOTAL 25(OH) VITAMIN D 27.8 NG/ML (20.0-100.0)
[2023-10-15 09:33] LABS: HEMOGLOBIN A1c 5.2 % (4.0-6.0)
== END ==
LOC: M LAB 08:24
PROVIDERS: ATTEND Obstetrics & Gynecology
DX: O99.840 Bariatric surgery status complicating pregnancy, unspecified trimester (principal)

== ENCOUNTER 2023-11-01 07:08 | Inpatient (IN) | payer BC ==
[2023-11-01] VITALS (27 sets, daily range): BP systolic 96–123; BP diastolic 50–74
[~2023-11-01] VITALS: Ht 165.1 cm; Wt 76.4 kg
[2023-11-01] MEDS ORDERED: CALCIUM GLUCONATE 1,000 MG in D5W MINI-BAG PLUS 100 ML IV PRN (07:15)
[2023-11-01] MEDS ORDERED: OXYTOCIN INJ 10UNITS/ML 1ML VIAL IM PRN (07:15)
[2023-11-01] MEDS ORDERED: METHYLERGONOVINE MALEATE 0.2MG/ML 1ML VIAL IM PRN (07:15)
[2023-11-01] MEDS ORDERED: CARBOPROST TROMETHAMINE 250 MCG/ML AMP IM PRN (07:15)
[2023-11-01] MEDS ORDERED: TRANEXAMIC ACID INJection 1,000 MG in NS 100 ML IV PRN (07:15)
[2023-11-01] MEDS ORDERED: ONDANSETRON 4MG 2ML VIAL IV PRN (07:15)
[2023-11-01] MEDS ORDERED: OXYTOCIN DRIP 30 UNITS in IV 1 EA IV PRN (07:15)
[2023-11-01] MEDS ORDERED: VITA250T26 PO (07:32)
[2023-11-01] MEDS ORDERED: VIIB20TA PO (07:32)
[2023-11-01] MEDS ORDERED: THERTAB52 PO (07:32)
[2023-11-01] MEDS ORDERED: COLA100C5 PO (07:32)
[2023-11-01] MEDS ORDERED: IRON27TA2 PO (07:32)
[2023-11-01] MEDS ORDERED: HOME MED LIST COMPLETE! XX SCH (07:35)
[2023-11-01 07:56] LABS: HEMATOCRIT 28.5 % (36.0-47.0); MEAN CORPUSCULAR HEMOGLOBIN 26.6 pg (27.0-33.0); MEAN CORPUSCULAR HGB CONC 31.6 g/dl (32.0-36.5); MEAN CORPUSCULAR VOLUME 84.3 fl (80.0-96.0); PLATELET COUNT, AUTOMATED 267 10^3/uL (150-450); RED BLOOD COUNT 3.38 10^6/uL (4.00-5.40); WHITE BLOOD COUNT 9.1 10^3/uL (4.0-10.0)
[2023-11-01 08:07] LABS: INR 0.95; PARTIAL THROMBOPLASTIN TIME 22.8 SECONDS (24.8-34.2); PROTHROMBIN TIME 12.4 SECONDS (12.5-14.5)
[2023-11-01] MEDS: BETAMETHASONE SOLUSPAN 6MG/ML 5ML VIAL IM SCH (08:09)
[2023-11-01] MEDS: MAG Sulf (L&D) 4 GM/100 ML 4 GM in IV 1 EA IV ONE (08:09)
[2023-11-01] MEDS: MAG Sulf (OBGYN) 20GM/500ML 20,000 MG in IV 1 EA IV SCH (08:09)
[2023-11-01] MEDS: LR 1,000 ML IV SCH (08:28)
[2023-11-01] MEDS: ACETAMINOPHEN 500 MG TAB PO PRN (15:37)
[2023-11-02] VITALS (13 sets, daily range): BP systolic 91–134; BP diastolic 50–67; O2SAT 100
[2023-11-02 07:02] LABS: HEMATOCRIT 26.4 % (36.0-47.0); HEMOGLOBIN 8.4 g/dl (12.0-15.5); MEAN CORPUSCULAR HEMOGLOBIN 26.7 pg (27.0-33.0); MEAN CORPUSCULAR HGB CONC 31.8 g/dl (32.0-36.5); MEAN CORPUSCULAR VOLUME 83.8 fl (80.0-96.0); PLATELET COUNT, AUTOMATED 263 10^3/uL (150-450); RED BLOOD COUNT 3.15 10^6/uL (4.00-5.40); WHITE BLOOD COUNT 10.2 10^3/uL (4.0-10.0)
[2023-11-02 07:11] LABS: INR 1.01; PARTIAL THROMBOPLASTIN TIME 22.2 SECONDS (24.8-34.2)
[2023-11-02] MEDS ORDERED: MAG Sulf (OBGYN) 20GM/500ML 20,000 MG in IV 1 EA IV SCH (10:40)
[2023-11-02] MEDS: PRENATAL VITAMINS CHEWABLE TABLET PO SCH (20:30)
[2023-11-02] MEDS: DOCUSATE SODIUM 100MG CAPSULE PO SCH (20:30)
[2023-11-02] MEDS: FERROUS SULFATE 325MG TAB PO SCH (21:00)
[2023-11-03] VITALS (19 sets, daily range): BP systolic 87–124; BP diastolic 46–69; TEMP 97.1–97.9; O2SAT 98
[2023-11-03 07:13] LABS: HEMATOCRIT 24.7 % (36.0-47.0); HEMOGLOBIN 7.7 g/dl (12.0-15.5); MEAN CORPUSCULAR HEMOGLOBIN 26.4 pg (27.0-33.0); MEAN CORPUSCULAR HGB CONC 31.2 g/dl (32.0-36.5); MEAN CORPUSCULAR VOLUME 84.6 fl (80.0-96.0); PLATELET COUNT, AUTOMATED 260 10^3/uL (150-450); RED BLOOD COUNT 2.92 10^6/uL (4.00-5.40); WHITE BLOOD COUNT 11.7 10^3/uL (4.0-10.0)
[2023-11-03 18:28] LABS: HEMATOCRIT 31.4 % (36.0-47.0); MEAN CORPUSCULAR HEMOGLOBIN 27.5 pg (27.0-33.0); MEAN CORPUSCULAR HGB CONC 32.2 g/dl (32.0-36.5); MEAN CORPUSCULAR VOLUME 85.6 fl (80.0-96.0); PLATELET COUNT, AUTOMATED 289 10^3/uL (150-450); RED BLOOD COUNT 3.67 10^6/uL (4.00-5.40); WHITE BLOOD COUNT 11.7 10^3/uL (4.0-10.0)
[2023-11-03 18:30] LABS: HEMOGLOBIN 10.1 g/dl (12.0-15.5)
== END 2023-11-03 18:40 | disposition home or self-care (01) | DRG 566 ==
LOC: M LDI 07:08
PROVIDERS: ADMIT Advanced Practice Midwife; ATTEND Obstetrics & Gynecology
PROC: 30233N1 Transfusion of Nonautologous Red Blood Cells into Peripheral Vein, Percutaneous Approach (ICD-10-PCS; principal; 2023-11-03)
DX: O44.13 Complete placenta previa with hemorrhage, third trimester (principal); O34.211 Maternal care for low transverse scar from previous cesarean delivery; D64.9 Anemia, unspecified; Z3A.31 31 weeks gestation of pregnancy; O99.013 Anemia complicating pregnancy, third trimester; O99.843 Bariatric surgery status complicating pregnancy, third trimester; Z79.899 Other long term (current) drug therapy

== ENCOUNTER → 2023-11-09 | Outpatient (CLI) | payer BC ==
[~2023-11-09] MED LIST changes: +COLA100C5 PO; +IRON27TA2 PO; +THERTAB52 PO; +VIIB20TA PO; +VITA250T26 PO
[2023-11-09 14:36] LABS: HEMATOCRIT 34.2 % (36.0-47.0); HEMOGLOBIN 10.9 g/dl (12.0-15.5); MEAN CORPUSCULAR HGB CONC 31.9 g/dl (32.0-36.5); MEAN CORPUSCULAR VOLUME 84.9 fl (80.0-96.0); PLATELET COUNT, AUTOMATED 263 10^3/uL (150-450); RED BLOOD COUNT 4.03 10^6/uL (4.00-5.40); WHITE BLOOD COUNT 12.9 10^3/uL (4.0-10.0)
== END ==
LOC: M LAB 13:58
PROVIDERS: ATTEND Advanced Practice Midwife
DX: Z34.83 Encounter for supervision of other normal pregnancy, third trimester (principal)

== ENCOUNTER 2023-11-12 09:34 | Outpatient (CLI) | payer BC ==
[~2023-11-12] VITALS: Ht 165.1 cm; Wt 78.5 kg
[2023-11-12 10:00] VITALS: BP 121/71
[2023-11-12 10:32] LABS: BASO % 0.1 % (0.0-1.0); HEMATOCRIT 31.1 % (36.0-47.0); HEMOGLOBIN 10.1 g/dl (12.0-15.5); LYMPH # 1.6 10^3/uL (1.5-5.0); LYMPH % 17.7 % (24.0-44.0); MEAN CORPUSCULAR HEMOGLOBIN 27.1 pg (27.0-33.0); MEAN CORPUSCULAR HGB CONC 32.5 g/dl (32.0-36.5); MEAN CORPUSCULAR VOLUME 83.4 fl (80.0-96.0); MONO # 0.7 10^3/uL (0.0-0.8); MONO % 7.8 % (2.0-8.0); NEUTROPHILS # 6.8 10^3/uL (1.5-8.5); NEUTROPHILS % 73.8 % (36.0-66.0); PLATELET COUNT, AUTOMATED 241 10^3/uL (150-450); RED BLOOD COUNT 3.73 10^6/uL (4.00-5.40); WHITE BLOOD COUNT 9.3 10^3/uL (4.0-10.0)
[2023-11-12 10:47] LABS: INR 1.03; PARTIAL THROMBOPLASTIN TIME 24.1 SECONDS (24.8-34.2); PROTHROMBIN TIME 13.2 SECONDS (12.5-14.5)
[2023-11-12] MEDS ORDERED: HOME MED LIST COMPLETE! XX SCH (10:50)
[2023-11-12 10:56] VITALS: BP 113/68
== END 2023-11-12 15:17 | disposition home or self-care (01) ==
LOC: M LDO 09:34
PROVIDERS: ATTEND Advanced Practice Midwife
DX: O44.13 Complete placenta previa with hemorrhage, third trimester (principal); O09.813 Supervision of pregnancy resulting from assisted reproductive technology, third trimester; O34.219 Maternal care for unspecified type scar from previous cesarean delivery; O09.523 Supervision of elderly multigravida, third trimester; O99.843 Bariatric surgery status complicating pregnancy, third trimester; O99.013 Anemia complicating pregnancy, third trimester; O99.513 Diseases of the respiratory system complicating pregnancy, third trimester; D64.9 Anemia, unspecified; J45.990 Exercise induced bronchospasm; Z3A.32 32 weeks gestation of pregnancy
CPT/HCPCS: 59025; 76815; 76817; 76820; 85025; 85384; 85610; 85730; 86850; G0463

== ENCOUNTER → 2023-11-14 | Outpatient (CLI) | payer BC | LOC: M WHC 06:58 | PROVIDERS: ATTEND Obstetrics & Gynecology | DX: O44.03 Complete placenta previa NOS or without hemorrhage, third trimester (principal); Z3A.33 33 weeks gestation of pregnancy ==

== ENCOUNTER → 2023-11-16 | Outpatient (CLI) | payer BC ==
[2023-11-16 17:34] LABS: HEMATOCRIT 33.6 % (36.0-47.0); HEMOGLOBIN 10.6 g/dl (12.0-15.5); MEAN CORPUSCULAR HEMOGLOBIN 26.6 pg (27.0-33.0); MEAN CORPUSCULAR HGB CONC 31.5 g/dl (32.0-36.5); MEAN CORPUSCULAR VOLUME 84.4 fl (80.0-96.0); PLATELET COUNT, AUTOMATED 257 10^3/uL (150-450); RED BLOOD COUNT 3.98 10^6/uL (4.00-5.40); WHITE BLOOD COUNT 10.6 10^3/uL (4.0-10.0)
== END ==
LOC: M LAB 16:33
PROVIDERS: ATTEND Obstetrics & Gynecology
DX: O44.00 Complete placenta previa NOS or without hemorrhage, unspecified trimester (principal)

== ENCOUNTER 2023-11-23 19:48 | Inpatient (IN) | payer BC ==
[~2023-11-23] VITALS: Ht 165.1 cm; Wt 80.0 kg
[~2023-11-23 19:48] MED LIST changes: -CLAR10TA7 PO; -OXYC1TAB23 PO
[2023-11-23] MEDS ORDERED: OXYTOCIN DRIP 30 UNITS in IV 1 EA IV PRN (20:00)
[2023-11-23] MEDS: BICITRA 30ML SOLN UDC PO ONE (20:00)
[2023-11-23] MEDS ORDERED: CARBOPROST TROMETHAMINE 250 MCG/ML AMP IM PRN (20:00)
[2023-11-23] MEDS ORDERED: METHYLERGONOVINE MALEATE 0.2MG/ML 1ML VIAL IM PRN (20:00)
[2023-11-23] MEDS ORDERED: TRANEXAMIC ACID INJection 1,000 MG in NS 100 ML IV PRN (20:00)
[2023-11-23] MEDS ORDERED: HOME MED LIST COMPLETE! XX SCH (20:05)
[2023-11-23] MEDS: AZITHROMYCIN INJ 500 MG, VIAL MATE ADAPTER 1 EACH in NS 250 ML IV ONE (20:09)
[2023-11-23 20:12] LABS: HEMATOCRIT 33.2 % (36.0-47.0); HEMOGLOBIN 10.7 g/dl (12.0-15.5); MEAN CORPUSCULAR HEMOGLOBIN 26.6 pg (27.0-33.0); MEAN CORPUSCULAR HGB CONC 32.2 g/dl (32.0-36.5); MEAN CORPUSCULAR VOLUME 82.6 fl (80.0-96.0); PLATELET COUNT, AUTOMATED 298 10^3/uL (150-450); RED BLOOD COUNT 4.02 10^6/uL (4.00-5.40); WHITE BLOOD COUNT 10.4 10^3/uL (4.0-10.0)
[2023-11-23 20:23] LABS: INR 1.03; PARTIAL THROMBOPLASTIN TIME 23.8 SECONDS (24.8-34.2); PROTHROMBIN TIME 13.2 SECONDS (12.5-14.5)
[2023-11-23] MEDS: ceFAZolin SOD 2 GM in IV 1 EA IV ONE (20:45)
[2023-11-23] MEDS ORDERED: MIDAZOLAM INJ 2MG/2ML VIAL As Ordered ONE (21:01)
[2023-11-23] MEDS ORDERED: fentaNYL 100 MCG/2 ML INJECTION As Ordered ONE (21:01)
[2023-11-23] MEDS ORDERED: MORPHINE PRES-FREE INJ 10 MG/10 ML VIAL As Ordered ONE (21:01)
[2023-11-23] MEDS ORDERED: OXYTOCIN 30UNITS IN 0.9% NaCl 500ML IV BAG As Ordered ONE (21:06)
[2023-11-23] MEDS ORDERED: ACETAMINOPHEN 1000MG 100ML IV BAG As Ordered ONE (21:06)
[2023-11-23] MEDS ORDERED: ePHEDrine SULFATE 25 MG/5 ML(5MG/ML) SYRINGE As Ordered ONE (21:07)
[2023-11-23] MEDS ORDERED: KETOROLAC 60MG 2ML VIAL As Ordered ONE (21:07)
[2023-11-23] MEDS ORDERED: PHENYLephrine 500MCG 5ML (100MCG/ML) SYRINGE As Ordered ONE (21:07)
[2023-11-23 21:12] LABS: CORD GAS ABE A -1.9; CORD GAS HCO3 A 24.8 MMOL/L; CORD GAS O2 SAT A 21.9 %; CORD GAS PH A 7.313 UNITS; CORD GAS PO2 A 12.3 mmHg; CORD GAS SBC A 21.1 MMOL/L; CORD GAS TCO2 A 26.3 MMOL/L
[2023-11-23] MEDS ORDERED: ONDANSETRON 4MG 2ML VIAL IV PRN (21:30)
[2023-11-23] MEDS: LR 1,000 ML IV SCH (21:30)
[2023-11-23] MEDS ORDERED: RHOGAM 300MCG (1500IU) INJ IM SCH (21:30)
[2023-11-23] MEDS: OXYTOCIN DRIP 30 UNITS in IV 1 EA IV SCH (21:30)
[2023-11-23] MEDS ORDERED: SIMETHICONE 80MG CHEW TAB PO PRN (21:30)
[2023-11-23] MEDS ORDERED: oxyCODONE 5MG TAB PO PRN (22:25)
[2023-11-23 22:31] VITALS: TEMP 96.8
[2023-11-23] MEDS: fentaNYL 100 MCG/2 ML INJECTION IV PRN (22:59)
[2023-11-23 23:30] VITALS: BP 109/56; O2SAT 98
[2023-11-23] MEDS: diphenhydrAMINE 50MG/ML VIAL IV ONE (23:45)
[2023-11-24] VITALS (9 sets, daily range): BP systolic 101–120; BP diastolic 54–69; O2SAT 98–100
[2023-11-24] MEDS: NALBUPHINE HCL 1MG/0.1ML (100MG/10ML) MDV IV PRN (02:10)
[2023-11-24] MEDS: KETOROLAC 30 MG/ML 1ML VIAL IV SCH (02:41)
[2023-11-24 07:31] LABS: HEMATOCRIT 26.6 % (36.0-47.0); MEAN CORPUSCULAR HEMOGLOBIN 26.6 pg (27.0-33.0); MEAN CORPUSCULAR VOLUME 83.4 fl (80.0-96.0); PLATELET COUNT, AUTOMATED 221 10^3/uL (150-450); RED BLOOD COUNT 3.19 10^6/uL (4.00-5.40); WHITE BLOOD COUNT 13.8 10^3/uL (4.0-10.0)
[2023-11-24 07:33] LABS: HEMOGLOBIN 8.5 g/dl (12.0-15.5)
[2023-11-24] MEDS: DOCUSATE SODIUM 100MG CAPSULE PO SCH (09:28)
[2023-11-24] MEDS: PRENATAL VITAMINS CHEWABLE TABLET PO SCH (09:29)
[2023-11-24 10:23] LABS: HEMATOCRIT 26.5 % (36.0-47.0); HEMOGLOBIN 8.3 g/dl (12.0-15.5); MEAN CORPUSCULAR HEMOGLOBIN 26.3 pg (27.0-33.0); MEAN CORPUSCULAR HGB CONC 31.3 g/dl (32.0-36.5); MEAN CORPUSCULAR VOLUME 83.9 fl (80.0-96.0); PLATELET COUNT, AUTOMATED 191 10^3/uL (150-450); RED BLOOD COUNT 3.16 10^6/uL (4.00-5.40); WHITE BLOOD COUNT 13.6 10^3/uL (4.0-10.0)
[2023-11-24] MEDS: diphenhydrAMINE 50MG/ML VIAL IV PRN (13:36)
[2023-11-24] MEDS: PERCOCET 5MG/325MG TAB PO PRN ×2 (13:38→22:43)
[2023-11-25 02:00] VITALS: BP 92/55; O2SAT 97
[2023-11-25 05:57] VITALS: BP 110/70; O2SAT 100
[2023-11-25] MEDS: MEASLES,MUMPS,RUBELLA VACCINE INJ (MMR-II) SC.IMMUN ONE (09:00)
[2023-11-25 09:26] LABS: HEMATOCRIT 28.6 % (36.0-47.0); HEMOGLOBIN 8.8 g/dl (12.0-15.5); MEAN CORPUSCULAR HEMOGLOBIN 26.3 pg (27.0-33.0); MEAN CORPUSCULAR HGB CONC 30.8 g/dl (32.0-36.5); MEAN CORPUSCULAR VOLUME 85.6 fl (80.0-96.0); PLATELET COUNT, AUTOMATED 269 10^3/uL (150-450); RED BLOOD COUNT 3.34 10^6/uL (4.00-5.40); WHITE BLOOD COUNT 11.4 10^3/uL (4.0-10.0)
[2023-11-25 11:40] VITALS: BP 99/58; O2SAT 97
[2023-11-25] MEDS ORDERED: MOM 30ML SUSPENSION UDC PO PRN (13:25)
[2023-11-25 14:00] VITALS: BP 109/58; O2SAT 99
[2023-11-25] MEDS ORDERED: OXYC1TAB23 PO (16:10)
[2023-11-25] MEDS: MOM 30ML SUSPENSION UDC PO PRN (16:35)
[2023-11-25] MEDS ORDERED: KETOROLAC 30 MG/ML 1ML VIAL As Ordered ONE (17:36)
[2023-11-25] MEDS: KETOROLAC 30 MG/ML 1ML VIAL IV PRN (17:40)
[2023-11-25 18:00] VITALS: BP 114/74; O2SAT 98
[2023-11-26 06:00] VITALS: BP 121/65; O2SAT 99
[2023-11-26] MEDS ORDERED: HOME MED LIST COMPLETE! XX SCH (08:50)
[2023-11-26] MEDS ORDERED: LORATADINE 10 MG TAB PO PRN (11:05)
[2023-11-26] MEDS ORDERED: CLAR10TA7 PO (11:09)
[2023-11-26] MEDS: ANUSOL HC CREAM 30GM TOP SCH (17:00)
== END 2023-11-26 16:00 | disposition home or self-care (01) | DRG 540 ==
LOC: M LDO 19:48 → M LDI 19:55 → M OBS 11-24 00:01
PROVIDERS: ADMIT Advanced Practice Midwife; ATTEND Specialist
PROC: 0UB70ZZ Excision of Bilateral Fallopian Tubes, Open Approach (ICD-10-PCS; 2023-11-23)
PROC: 10D00Z1 Extraction of Products of Conception, Low, Open Approach (ICD-10-PCS; principal; 2023-11-23 20:38)
DX: O44.13 Complete placenta previa with hemorrhage, third trimester (principal); Z30.2 Encounter for sterilization; Z3A.34 34 weeks gestation of pregnancy; O34.211 Maternal care for low transverse scar from previous cesarean delivery; Z37.0 Single live birth

== ENCOUNTER → 2023-11-23 | Outpatient (CLI) | payer BC ==
[~2023-11-23] MED LIST changes: +CLAR10TA7 PO; +OXYC1TAB23 PO
[2023-11-23 12:30] LABS: HEMATOCRIT 32.1 % (36.0-47.0); HEMOGLOBIN 10.2 g/dl (12.0-15.5); MEAN CORPUSCULAR HEMOGLOBIN 26.8 pg (27.0-33.0); MEAN CORPUSCULAR HGB CONC 31.8 g/dl (32.0-36.5); MEAN CORPUSCULAR VOLUME 84.3 fl (80.0-96.0); PLATELET COUNT, AUTOMATED 264 10^3/uL (150-450); RED BLOOD COUNT 3.81 10^6/uL (4.00-5.40); WHITE BLOOD COUNT 9.6 10^3/uL (4.0-10.0)
== END ==
LOC: M LAB 10:42
PROVIDERS: ATTEND Obstetrics & Gynecology
DX: O44.03 Complete placenta previa NOS or without hemorrhage, third trimester (principal); O99.019 Anemia complicating pregnancy, unspecified trimester

== ENCOUNTER → 2024-04-23 | Outpatient (REF) | payer BC ==
[~2024-04-23] MED LIST changes: +CLAR10TA7 PO; +OXYC1TAB23 PO
[2024-04-25 13:07] LABS: HPV APTIMA Not Detected (Not Detected)
== END ==
LOC: M SFHCWAGY 13:34
PROVIDERS: ATTEND Advanced Practice Midwife
DX: Z12.4 Encounter for screening for malignant neoplasm of cervix (principal)
CPT/HCPCS: 87624; G0123

== ENCOUNTER → 2024-09-30 | Outpatient (CLI) | payer BC ==
[2024-09-30 12:08] LABS: HEMATOCRIT 34.8 % (36.0-47.0); HEMOGLOBIN 10.4 g/dl (12.0-15.5); MEAN CORPUSCULAR HEMOGLOBIN 23.2 pg (27.0-33.0); MEAN CORPUSCULAR HGB CONC 29.9 g/dl (32.0-36.5); MEAN CORPUSCULAR VOLUME 77.7 fl (80.0-96.0); PLATELET COUNT, AUTOMATED 355 10^3/uL (150-450); RED BLOOD COUNT 4.48 10^6/uL (4.00-5.40); WHITE BLOOD COUNT 6.6 10^3/uL (4.0-10.0)
== END ==
LOC: M LAB 11:34
PROVIDERS: ATTEND Obstetrics & Gynecology
DX: D50.0 Iron deficiency anemia secondary to blood loss (chronic) (principal)

== ENCOUNTER → 2025-03-17 | Outpatient (CLI) | payer BC ==
[~2025-03-17] VITALS: Ht 165.1 cm; Wt 66.4 kg
[~2025-03-17] MED LIST changes: +ALBUTEROL SULFATE 2.5 MG/0.5 ML INH CONCENTRATE NEB SOLN INH PRN; +EPINEPHrine INJ 1 MG/ML 1ML AMP IM PRN; +diphenhydrAMINE 50 MG/ML VIAL IV PRN
[2025-03-17 14:55] VITALS: BP 117/58; O2SAT 98
[2025-03-17] MEDS: FERRIC CARBOXYMALTOSE 750 MG (VIAL MATE) IN 100ML NS IV ONE (15:02)
[2025-03-17 15:25] VITALS: BP 119/55; O2SAT 98
== END ==
LOC: M INFU 14:31
PROVIDERS: ATTEND Advanced Practice Midwife
DX: D50.9 Iron deficiency anemia, unspecified (principal); Z98.84 Bariatric surgery status
CPT/HCPCS: 96365; J1439

== ENCOUNTER → 2025-04-08 | Outpatient (REF) | payer BC ==
[~2025-04-08] MED LIST changes: -ALBUTEROL SULFATE 2.5 MG/0.5 ML INH CONCENTRATE NEB SOLN INH PRN; -EPINEPHrine INJ 1 MG/ML 1ML AMP IM PRN; -diphenhydrAMINE 50 MG/ML VIAL IV PRN
[2025-04-08 13:14] LABS: ALT/SGPT 28 U/L (7.0-40); AST/SGOT 18 U/L (<34); CALCIUM LEVEL 8.4 MG/DL (8.5-10.1); CARBON DIOXIDE LEVEL 28 MMOL/L (20-31); CHLORIDE LEVEL 103 MMOL/L (98-107); CHOLESTEROL LEVEL 155 MG/DL (<200); CHOLESTEROL RISK RATIO 2.22 (<5); CREATININE FOR GFR 0.79 MG/DL (0.55-1.30); GLOMERULAR FILTRATION RATE > 90.0 (>58); IRON (FE) 79 UG/DL (50-170); LDL CHOLESTEROL 71.8 MG/DL (<100); NON-HDL-C 85.2 MG/DL; PERCENT SATURATION 25.9 % (13.2-45.0); POTASSIUM SERUM 4.0 MMOL/L (3.5-5.1); SODIUM LEVEL 144 MMOL/L (136-145); TRIGLYCERIDES LEVEL 67 MG/DL (<150)
[2025-04-08 13:19] LABS: TOTAL 25(OH) VITAMIN D 26.7 NG/ML (20.0-100.0); VITAMIN B12 LEVEL 699 PG/ML (211-911)
[2025-04-08 13:20] LABS: FREE T4 1.10 NG/DL (0.89-1.76)
[2025-04-08 13:36] LABS: BASO # 0.0 10^3/uL (0.0-0.2); BASO % 0.3 % (0.0-1.0); EOS # 0.0 10^3/uL (0.0-0.5); EOS % 0.0 % (0.0-3.0); LYMPH # 2.3 10^3/uL (1.5-5.0); LYMPH % 26.0 % (24.0-44.0); MONO # 0.5 10^3/uL (0.0-0.8); MONO % 6.1 % (2.0-8.0); NEUTROPHILS # 6.0 10^3/uL (1.5-8.5); NEUTROPHILS % 67.5 % (36.0-66.0); PLATELET COUNT, AUTOMATED 221 10^3/uL (150-450)
[2025-04-08 13:57] LABS: ESTIMATED AVERAGE GLUCOSE 88.0 MG/DL (60-110)
[2025-04-08 14:59] LABS: PLATELET ESTIMATE NORMAL (NORMAL)
== END ==
LOC: M SFHCADAM 11:48
PROVIDERS: ATTEND Physician Assistant
DX: D50.0 Iron deficiency anemia secondary to blood loss (chronic) (principal); Z98.84 Bariatric surgery status; Z13.220 Encounter for screening for lipoid disorders; Z13.1 Encounter for screening for diabetes mellitus; N92.6 Irregular menstruation, unspecified